=== PATIENT | male | born 1960 | race Caucasian/White ===

== ENCOUNTER → 2019-06-27 | Outpatient (CLI) | payer OTHER ==
[~2019-06-27] MED LIST: ANDROGEL; FLOMAX0.4 MG PO; HYDROCODON-ACE1 EAC7 PO; ZOFRAN ODT4 MG PO
--- NOTE | 2019-06-29 11:46 | TST ---
[place] [address] TREADMILL STRESS TEST Name: HARRYMELISSA Hank Room: [facility]#: [id number] Admission: 06/27/19 Attend Phys: Terry Norris, Discharge: Date of : 62 Date of Service: 06/27/19 1552 Report #: [id number] THIS REPORT FOR: //name// CC: MERRITT Norris MD REFERRING PHYSICIANS: 1. Terry Norris MD 2. Merritt Davalos MD PROCEDURE: Standard Macario protocol exercise stress test. INDICATION: Abnormal EKG. CARDIAC HISTORY: None. CARDIAC RISK FACTORS: Age greater than 55. CURRENT CARDIAC MEDICATIONS: Lisinopril. The patient exercised per standard Macario protocol for a total of 13 minutes and 58 seconds. He achieved 96% of the maximum predicted heart rate and an energy expenditure equivalent to 14.83 mets. The resting blood pressure was 153/94 with a resting pulse rate of 69 beats per minute. At peak stress, the blood pressure was 209/78 mmHg with a peak stress heart rate of 156 beats per minute. In recovery, the patient's blood pressure was 154/88 mmHg with a recovery heart rate of 77 beats per minute. Exercise was stopped due to fatigue and achievement of target heart rate. The baseline 12-lead EKG shows a sinus rhythm without significant ST or T-wave abnormality. There is note of an incomplete right bundle branch block. EKGs obtained during and post-exercise shows sinus rhythm and sinus tachycardia with no significant ST or T-wave changes when compared to baseline. There were no significant ST or T-wave changes when compared to baseline. The patient exhibited excellent exercise tolerance. IMPRESSION: 1. Standard Macario protocol exercise stress test shows no clinical evidence to suggest stress-induced ischemia. 2. Standard Macario protocol exercise stress test shows no EKG evidence to suggest stress-induced ischemia. CONCLUSION: The patient exhibited excellent exercise tolerance. [place] [address] TREADMILL STRESS TEST Name: MELISSA MCDONALD Room: [facility]#: [id number] Admission: 06/27/19 Attend Phys: Terry Norris, Discharge: Date of : 62 Date of Service: 06/27/19 155 Report #: [id number] significant clinical or EKG findings to suggest stress-induced ischemia. This is a low-risk study. <ELECTRONICALLY SIGNED> By: Sotero Bradford MD, FACC 06/29/19 1146 1552 [id number] Sotero Bradford MD, FACC /nt
== END ==
LOC: M.CRD 14:29
DX: R94.31 Abnormal electrocardiogram [ECG] [EKG] (principal); E80.7 Disorder of bilirubin metabolism, unspecified; Z79.899 Other long term (current) drug therapy

== ENCOUNTER → 2019-07-01 | Outpatient (CLI) | payer OTHER | LOC: M.ULTRA 07:25 | DX: K80.80 Other cholelithiasis without obstruction (principal); N28.1 Cyst of kidney, acquired; R94.31 Abnormal electrocardiogram [ECG] [EKG]; R82.2 Biliuria ==

== ENCOUNTER → 2020-01-06 | Day surgery (SDC) | payer OTHER ==
[~2020-01-06] MED LIST changes: +COZAAR 25 MG TA25 M1 PO; +NORCO 5-325 TA1 EAC1 PO
--- NOTE | ~2020-01-06 | OP ---
[address] [address] OPERATIVE REPORT Name: MELISSA MCDONALD Room: [facility] Cynthia#: [id number] Admission: 01/06/20 Attend Phys: Briseida Najera DO Discharge: Date of : 62 Report #: [id number] THIS REPORT FOR: //name// cc: Terry Norris MD, Tuongvan T. MD ~ THIS REPORT FOR: //name// CC: Briseida Norris DATE OF SERVICE: 01/06/2020 PREOPERATIVE DIAGNOSES: 1. Cholelithiasis. 2. Hyperbilirubinemia. POSTOPERATIVE DIAGNOSES: 1. Cholelithiasis. 2. Hyperbilirubinemia. PROCEDURES: 1. Laparoscopic cholecystectomy with intraoperative cholangiogram. 2. Core needle liver biopsy x 3. SURGEON: Briseida Najera DO ANESTHESIA: General endotracheal. SPECIMENS: 1. Gallbladder and contents. 2. Core needle liver biopsy x 3. INTRAOPERATIVE FINDINGS: Cholangiogram with filling of the cystic duct, common bile duct, common hepatic and left and right hepatic ducts as well as the duodenum. There was a slight filling defect of the distal common bile duct, which did not appear to be a stone. Radiology confirmed that appeared to be a stricture and not choledocholithiasis. A 5 mL of FloSeal and Surgicel was placed within the gallbladder fossa. ESTIMATED BLOOD LOSS: 50 mL. COMPLICATIONS: None. INDICATIONS FOR PROCEDURE: The patient is a 59-year-old gentleman who was referred for evaluation of hyperbilirubinemia as well as cholelithiasis. The patient has had multiple accounts of elevated bilirubin, [place] [address] OPERATIVE REPORT Name: MELISSA MCDONALD [id number] Admission: 01/06/20 Attend Phys: Briseida Najera DO Discharge: Date of : 62 Report #: [id number] unexplained. This morning's labs, his bilirubin was 1.1, slightly above normal and the remainder of his LFTs were normal. Discussed with the patient laparoscopic cholecystectomy with cholangiogram as well as liver biopsy. Risks of the procedure were discussed and informed consent was obtained. DESCRIPTION OF PROCEDURE: After the patient was brought back to the operating room, placed in supine position. General anesthesia was induced. SCDs were placed on bilateral lower extremities and prophylactic antibiotics were administered. A timeout was performed and the abdomen was prepped and draped in the usual sterile fashion. Next, using a Flaquita trocar, the abdomen was accessed via way of a supraumbilical Flaquita. The abdomen was insufflated to 15 mm of CO2. Next, under direct visualization, three 5 mm trocars were placed in the subxiphoid and right subcostal margin. The gallbladder was then grasped and retracted over the dome of the liver. The infundibulum was then grasped and retracted anteriorly and laterally. Meticulous dissection with the [place] dissector as well as a suction utility accounts director was performed to clear the critical view of safety and the cystic duct, cystic artery with the liver bed, posterior was identified. Next, the cystic duct was singly clipped proximally at the level of the infundibulum. The cystic artery was doubly clipped distally and singly clipped proximally and transected to allow for additional mobility of the cystic duct. A ductotomy was then created using a 14-gauge Angiocath that was placed through the right upper quadrant. A taut cholangiogram catheter was then inserted into the abdomen. The taut catheter was then placed within the ductotomy and a single clip was applied to secure the catheter in place. Using 50:50 Isovue, a cholangiogram was performed per my read. There was good visualization of the cystic duct, common bile duct, common hepatic duct, left and right hepatic ducts as well as the filling within the duodenum. There was a slight filling defect in the distal common bile duct, which was not mobile and did not appear to be a stone. I did ask Radiology to take a look at this to ensure there was no evidence of choledocholithiasis. Upon review, Radiology did state that it appeared that there was no choledocholithiasis; however, there was a small stricture in the distal common bile duct. Next, the clip and catheter was then removed. The cystic duct was then doubly clipped distally and transected. The gallbladder was then dissected free from the liver bed using hook Bovie cautery. The gallbladder was then placed within an EndoCatch bag and brought out through the umbilical trocar site. The liver bed was inspected. There was noted to be some bleeding from the lateral surface of the cystic plate. This was attempted to be cauterized. However, there continued to be bleeding. A piece of Surgicel was then placed over this area and pressure was held for approximately 10 minutes. Additional bleeding continued and therefore a new piece of Surgicel was then placed and pressure was continued to be held. Hemostasis was then achieved. Next, using a core needle liver biopsy, three biopsies were obtained from the anterior right lobe of the liver and cautery was used to ensure no bleeding. Liver biopsies then were sent off as specimen. The cystic plate was then again inspected, was noted to be hemostatic. The cystic duct and cystic artery clips were noted to be in good position without bleeding [facility] [address] [place] [address] OPERATIVE REPORT Name: MELISSA MCDONALD Room: [facility] M.R.#: [id number] Admission: 01/06/20 Attend Phys: Briseida Najera DO Discharge: Date of : 62 Report #: [id number] or bile leakage. Next, 5 mL of FloSeal was then placed within the gallbladder fossa along the cystic plate. Omentum was packed into the right upper quadrant. The right upper quadrant was suctioned and irrigated until clear. The 5 mm trocars were removed under direct visualization noting excellent hemostasis at the anterior abdominal wall. The Flaquita was then removed. The umbilical fascia was closed with a [id number] 0 Vicryl stitch. Local anesthetic was infiltrated into all surgical sites. The skin was then closed with 4-0 Monocryl in a subcuticular manner and Dermabond was applied for sterile dressing. All sponge, and instrument count was reported as correct at the end of the case. The patient tolerated the procedure well without any complications. He was awakened from anesthesia in the operating room and taken to PACU in stable condition for further recovery. By: [id number] Najera, DO /nt
[2020-01-06 06:52] LABS: HEMATOCRIT 43.3 % (42.0-52.0); HEMOGLOBIN 15.6 gm/dL (14.0-18.0); MCH 31.8 pg (26.0-34.0); MCHC 36.1 g/dL (28.0-37.0); MCV 88.3 fL (80.0-100.0); MPV 7.7 fl. (7.2-11.1); RBC 4.9 mil/uL (4.50-6.00); RDW-CV 13.3 % (10.5-14.5); WBC 6.8 thou/uL (4.0-11.0)
[2020-01-06 06:59] LABS: CALCIUM 8.5 mg/dL (8.5-10.1); CREATININE 0.8 mg/dL (0.6-1.3)
[2020-01-06 07:03] LABS: APTT 27.3 Seconds (25.0-31.3); INR 1.1; PROTIME 11.4 Seconds (9.20-11.50)
[2020-01-06 07:15] LABS: ALBUMIN 3.9 g/dL (3.4-5.0); TOTAL BILIRUBIN 1.1 mg/dL (<0.1-1.0)
--- NOTE | 2020-01-09 17:07 | PATH ---
[address] [address] PATHOLOGY RPT PROCEDURE Name: PALOMO MCDONALD Room: [facility] M.Reynaldo.#: [id number] Admission: 01/06/20 Date of : 62 Discharge: Report #: [id number] Path Case #: [id number] [facility] Accession Number: [id number] . 01 Material submitted: . PART A: liver - LIVER BIOPSY PART B: gallbladder - GALLBLADDER . 01 Clinical history: . Cholelithiasis, hyperbilirubinemia . 02 Diagnosis: A. Liver, needle biopsy: - Hepatocellular and kupffer siderosis, severe (4+/4) - Steatosis, minimal (<10%). - Negative for significant fibrosis. - Please see comment. . B. Gallbladder: - Chronic cholecystitis, cholesterolosis and cholelithiasis. . (JOSE:alfredo; 01/07/2020) S 01/09/2020 1643 Local . 02 Comment: A. The clinical history of multiple bouts of unexplained bilirubinemia is noted with bilirubin of 1.1 and normal LFTs on morning of this procedure. Intraoperative cholangiogram showed filling defect consistent with stricture in the distal common bile duct (operative report by Briseida Najera dated 01/06/2020). Previous available chemistrites (03/15/2014) showed T-bili 1.9 with all other normal liver function tests. . The tissue cores show abundant well-preserved liver parenchyma for evaluation and show the above-noted findings as well as essentially normal portal tracts. No rishi evidence of bile stasis is seen. A panel of properly controlled special stains performed on each of A1, A2, and A3 each show the following results: . Iron: 4+/4 Hepatocellular and kupffer siderosis, most pronounced in zones 1 with a gradient decrease to zones 3. . Trichrome and reticulin: No fibrosis with normal liver plates PAS with and without diastase: No PAS positive diastase resistant globules . The pattern of iron deposition raises the question of hereditary iron overload. Correlation with iron indices and and genetic markers is suggested. The A2 block will be sent for a quantitative iron [place] [address] PATHOLOGY RPT PROCEDURE Name: PALOMO MCDONALD MARCOSTORO Room: [facility] Cynthia#: [id number] Admission: 01/06/20 Date of : 62 Discharge: Report #: [id number] Path Case #: [id number] Specimen A reviewed with Dr. Meghan Gould, who agrees with the diagnosis. . (JOSE:alfredo; 01/07/2020) . 02 Electronically signed: . Remy Patel MD, Pathologist NPI- [id number] . 01 Gross description: . A. The specimen is received in formalin, labeled "Palomo Lutts, liver biopsy". Received are seven needle cores of pale blunt soft tissue ranging in length from 0.4 to 1.5 cm in length by 0.1 cm in diameter. The specimen is submitted entirely in cassettes A1 through A3. . B. The specimen is received in formalin, labeled "Palomo Lutts, gallbladder". Received is an intact gallbladder measuring 10.1 x 3.9 x 3.0 cm in greatest dimensions displaying a pink-blunt to adipose covered serosal surface. Opening the specimen reveals a velvety, bile-stained mucosa with mild, diffuse cholesterolosis, and with a gallbladder wall thickness of 0.1 cm. A single light green, granular calculus is present, and no masses or lesions are noted grossly. Rail Washer sections, to include the proximal margin, are submitted in cassette B1. ([facility]AA; 01/06/2020) QA/[facility] 01/07/2020 1420 Local . 02 Pathologist provided ICD-10: E83.19, K76.0, K80.10, K82.4 . 02 CPT . 491567, 551182, 800966, 929146, 509316, 789455, 951775, 856501, 248203, 258156, 739969 Specimen Comment: A courtesy copy of this report has been sent to [phone], [phone] Specimen Comment: [phone] Specimen Comment: Report sent to and Performed at: [address] [facility] [address], [place], [place] [id number] MD Russell Zuluaga MD Phone: [phone] Performed at: [address] [facility], [place], [place] [id number] MD Remy Patel MD Phone: [phone]
== END | disposition home or self-care (01) ==
LOC: M.SUR 06:10
PROVIDERS: Surgery
DX: K80.10 Calculus of gallbladder with chronic cholecystitis without obstruction (principal); E80.6 Other disorders of bilirubin metabolism; E83.19 Other disorders of iron metabolism; K76.0 Fatty (change of) liver, not elsewhere classified; K76.89 Other specified diseases of liver; Z98.890 Other specified postprocedural states; Z79.899 Other long term (current) drug therapy; Z88.0 Allergy status to penicillin